=== PATIENT | female | born 1940 | race Caucasian/White ===

== ENCOUNTER 2020-08-08 15:16 | Emergency (ER) | payer MEDICARE ==
[~2020-08-08 15:16] MED LIST: MONT10TA21 PO
[2020-08-08] MEDS ORDERED: GUAIFENESIN SUGAR-FREE 100 MG/5 ML UDCUP ONE (15:48)
[2020-08-08] MEDS ORDERED: 0.9%NACL 1000ML 1,000 ML IV ONE (15:48)
[2020-08-08] MEDS ORDERED: ALBUTEROL 0.083% 2.5 MG/3 ML INH IH ONE (16:09)
[2020-08-08] MEDS ORDERED: HYDROXYZINE 25 MG TABLET ONE (16:13)
[2020-08-08] MEDS ORDERED: DEXAMETHASONE SOD PHOSPHATE 10MG/ML 1ML VIAL ONE (16:13)
[2020-08-08 16:24] LABS: BASOPHILS % (AUTO) 1.3 % (0.0-5.0); EOSINOPHILS % (AUTO) 18.5 % (0.0-8.0); HEMATOCRIT 42.4 % (36-48); LYMPHOCYTES % (AUTO) 18.3 % (21.0-51.0); MEAN CORPUSCULAR HEMOGLOBIN 30.9 pg (27.0-33.0); MEAN CORPUSCULAR HGB CONC 32.1 g/dL (32.0-36.0); MEAN CORPUSCULAR VOLUME 96.4 fL (79-99); MONOCYTES % (AUTO) 6.1 % (3.0-13.0); NEUTROPHILS % (AUTO) 55.7 % (40.0-77.0); PLATELET COUNT (AUTO) 176 K/uL (130-400); RED CELL DISTRIBUTION WIDTH 13.4 % (11.0-15.5); WHITE BLOOD COUNT (AUTO) 7.7 K/uL (4.8-10.8)
[2020-08-08 16:45] LABS: CREATININE 0.9 mg/dL (0.5-1.5); INR 0.99 (0.85-1.15); POTASSIUM 4.9 mmol/L (3.5-5.1); PROTHROMBIN TIME 10.8 SEC (9.6-11.6)
[2020-08-08 16:46] LABS: PARTIAL THROMBOPLASTIN TIME 29.3 SEC (26.3-35.5)
[2020-08-08 16:47] LABS: B-TYPE NATRIURETIC PEPTIDE 11 pg/mL (0-100)
[2020-08-08 16:50] LABS: ALBUMIN 3.7 g/dL (3.5-5.0); BILIRUBIN,TOTAL 0.4 mg/dL (0.2-1.0); TOTAL PROTEIN, SERUM 7.3 g/dL (6.0-8.3)
== END 2020-08-08 18:03 | disposition home or self-care (01) ==
LOC: EDH 15:16
DX: J40 Bronchitis, not specified as acute or chronic (principal); Z88.0 Allergy status to penicillin; Z88.6 Allergy status to analgesic agent; Z88.2 Allergy status to sulfonamides; Z88.1 Allergy status to other antibiotic agents; Z88.8 Allergy status to other drugs, medicaments and biological substances
CPT/HCPCS: 36415; 71045; 80053; 82550; 83605; 83880; 84484; 85025; 85610; 85730; 87040 ×2; 93005; 94640 ×2; 96365; 96366; 96375; 99285; J1100; J7030

== ENCOUNTER 2021-05-24 14:15 | Observation (INO) | payer OTHER ==
[~2021-05-24] VITALS: Ht 162.6 cm; Wt 62.2 kg
[2021-05-24] MEDS ORDERED: IPRATROPIUM/ALBUTEROL SULFATE 3 ML SOLUTION IH ONE (15:00)
[2021-05-24] MEDS ORDERED: 0.9%NACL 1000ML 1,000 ML IV ONE (15:00)
[2021-05-24] MEDS ORDERED: SOLU-MEDROL 125MG VIAL IVP ONE (15:00)
[2021-05-24 15:06] LABS: BASOPHILS % (AUTO) 0.5 % (0.0-5.0); EOSINOPHILS % (AUTO) 31.1 % (0.0-8.0); HEMATOCRIT 41.7 % (36-48); LYMPHOCYTES % (AUTO) 7.1 % (21.0-51.0); MEAN CORPUSCULAR HEMOGLOBIN 31.3 pg (27.0-33.0); MEAN CORPUSCULAR HGB CONC 32.4 g/dL (32.0-36.0); MEAN CORPUSCULAR VOLUME 96.5 fL (79-99); MONOCYTES % (AUTO) 5.5 % (3.0-13.0); NEUTROPHILS % (AUTO) 55.4 % (40.0-77.0); PLATELET COUNT (AUTO) 219 K/uL (130-400); RED BLOOD CELL COUNT(AUTO) 4.32 MIL/uL (4.00-5.50); RED CELL DISTRIBUTION WIDTH 13.9 % (11.0-15.5)
[2021-05-24] MEDS ORDERED: ALBUTEROL 0.083% 2.5 MG/3 ML INH IH ONE (15:11)
[2021-05-24 15:18] LABS: CREATININE 0.8 mg/dL (0.5-1.5); POTASSIUM 4.5 mmol/L (3.5-5.1)
[2021-05-24 15:23] LABS: ALBUMIN 3.5 g/dL (3.5-5.0); BILIRUBIN,TOTAL 0.8 mg/dL (0.2-1.0); TOTAL PROTEIN, SERUM 6.8 g/dL (6.0-8.3)
[2021-05-24 15:27] LABS: B-TYPE NATRIURETIC PEPTIDE 11 pg/mL (0-100)
[2021-05-24] MEDS ORDERED: LORAZEPAM 2 MG/ML 1 ML VIAL IVP ONE (15:30)
[2021-05-24 16:21] LABS: ABG BASE EXCESS -6.8 mmol/L (-2.0-3.0); ABG HCO3 17.7 mmol/L (21.0-28.0); ABG OXYGEN SATURATION 95.4 % (95.0-99.0); ABG PCO2 33 mmHg (32-45)
[2021-05-24] MEDS ORDERED: GUAIFENESIN-DM 200/20 MG 10 ML PO ONE (16:30)
[2021-05-24] MEDS ORDERED: LORAZEPAM 2 MG/ML 1 ML VIAL ONE (16:44)
[2021-05-24] MEDS ORDERED: AZITHROMYCIN 500MG VIAL IVPB SCH (17:30)
[2021-05-24] MEDS ORDERED: ONDANSETRON 4MG INJ IVP PRN (17:30)
[2021-05-24] MEDS ORDERED: ACETAMINOPHEN 325 MG TAB PO PRN (17:30)
[2021-05-24] MEDS ORDERED: ALBUTEROL 0.042% 1.25MG/3ML IH SCH (18:00)
[2021-05-24] MEDS ORDERED: PHARMACY COMMUNICATION MISC SCH ×2 (18:00→19:00)
[2021-05-24] MEDS ORDERED: SODIUM CHLORIDE 3% FOR INHALATION 4 ML/AMP VIAL.NEB IH ONE ×2 (18:39→22:15)
[2021-05-24] MEDS: IPRATROPIUM/ALBUTEROL SULFATE 3 ML SOLUTION IH SCH (19:32)
[2021-05-24] MEDS: BUDESONIDE 0.5 MG/2 ML INH IH SCH (19:32)
[2021-05-24] MEDS ORDERED: AZITHROMYCIN 500MG+NS 250ML 250 ML IV ONE (21:04)
[2021-05-24] MEDS: 0.9% NACL 250ML IVPB SCH (21:14)
[2021-05-24] MEDS: FAMOTIDINE 20MG VIAL IV SCH (21:14)
[2021-05-24] MEDS: MONTELUKAST SODIUM 10 MG TAB PO SCH (21:14)
[2021-05-24] MEDS: SOLU-MEDROL 40MG VIAL IVP SCH (21:14)
[2021-05-25] MEDS: IPRATROPIUM/ALBUTEROL SULFATE 3 ML SOLUTION IH SCH ×5 (00:31→18:43)
[2021-05-25] MEDS ORDERED: SODIUM CHLORIDE 3% FOR INHALATION 4 ML/AMP VIAL.NEB IH ONE (01:20)
[2021-05-25] MEDS: SOLU-MEDROL 40MG VIAL IVP SCH ×2 (05:25→12:39)
[2021-05-25] MEDS: GUAIFENESIN-DM 200/20 MG 10 ML PO PRN ×2 (05:41→17:02)
[2021-05-25] MEDS ORDERED: IPRATROPIUM/ALBUTEROL SULFATE 3 ML SOLUTION IH ONE (06:25)
[2021-05-25 07:09] LABS: HEMATOCRIT 37.5 % (36-48); MEAN CORPUSCULAR HEMOGLOBIN 30.9 pg (27.0-33.0); MEAN CORPUSCULAR HGB CONC 31.7 g/dL (32.0-36.0); MEAN CORPUSCULAR VOLUME 97.4 fL (79-99); RED BLOOD CELL COUNT(AUTO) 3.85 MIL/uL (4.00-5.50); RED CELL DISTRIBUTION WIDTH 14.2 % (11.0-15.5); WHITE BLOOD COUNT (AUTO) 6.2 K/uL (4.8-10.8)
[2021-05-25 07:17] LABS: CREATININE 0.8 mg/dL (0.5-1.5); POTASSIUM 4.3 mmol/L (3.5-5.1)
[2021-05-25] MEDS: BUDESONIDE 0.5 MG/2 ML INH IH SCH ×2 (07:27→18:57)
[2021-05-25] MEDS ORDERED: IPRATROPIUM/ALBUTEROL SULFATE 3 ML SOLUTION IH SCH (08:00)
[2021-05-25 08:56] VITALS: BP 138/70
[2021-05-25] MEDS: CETIRIZINE HCL 5 MG TABLET PO SCH (09:53)
[2021-05-25] MEDS: FAMOTIDINE 20MG VIAL IV SCH ×2 (09:53→21:32)
[2021-05-25 11:52] VITALS: BP 132/59
[2021-05-25 16:01] VITALS: BP 120/60
[2021-05-25 16:02] LABS: HEMOGLOBIN A1C 5.8 % (4.0-6.0)
[2021-05-25] MEDS ORDERED: INSULIN HUMULIN R 100 UNIT/ML 3ML SQ SCH (16:30)
[2021-05-25] MEDS: 0.9% NACL 250ML IVPB SCH (17:16)
[2021-05-25] MEDS: AZITHROMYCIN 500MG+NS 250ML IV SCH (17:16)
[2021-05-25 20:00] VITALS: BP 140/58
[2021-05-25] MEDS: MONTELUKAST SODIUM 10 MG TAB PO SCH (21:32)
[2021-05-26] MEDS ORDERED: SOLU-MEDROL 40MG VIAL IVP SCH
[2021-05-26 00:06] VITALS: BP 138/70
[2021-05-26] MEDS: IPRATROPIUM/ALBUTEROL SULFATE 3 ML SOLUTION IH SCH ×5 (00:06→23:48)
[2021-05-26] MEDS: GUAIFENESIN-DM 200/20 MG 10 ML PO PRN ×3 (00:12→22:13)
[2021-05-26 04:09] VITALS: BP 135/67
[2021-05-26 04:28] LABS: HEMATOCRIT 35.4 % (36-48); MEAN CORPUSCULAR HEMOGLOBIN 31.7 pg (27.0-33.0); MEAN CORPUSCULAR HGB CONC 31.9 g/dL (32.0-36.0); MEAN CORPUSCULAR VOLUME 99.2 fL (79-99); RED BLOOD CELL COUNT(AUTO) 3.57 MIL/uL (4.00-5.50); RED CELL DISTRIBUTION WIDTH 14.3 % (11.0-15.5); WHITE BLOOD COUNT (AUTO) 12.4 K/uL (4.8-10.8)
[2021-05-26 04:38] LABS: CREATININE 0.9 mg/dL (0.5-1.5)
[2021-05-26] MEDS: BUDESONIDE 0.5 MG/2 ML INH IH SCH ×2 (06:40→18:55)
[2021-05-26] MEDS: FAMOTIDINE 20MG VIAL IV SCH ×2 (08:30→20:39)
[2021-05-26] MEDS: CETIRIZINE HCL 5 MG TABLET PO SCH (08:30)
[2021-05-26 08:47] VITALS: BP 142/67
[2021-05-26] MEDS ORDERED: BENZONATATE 100 MG CAPSULE PO PRN (12:30)
[2021-05-26 12:36] VITALS: BP 170/60
[2021-05-26] MEDS ORDERED: DEXTROSE 50%-WATER 50 ML DISP.SYRIN IV PRN (13:00)
[2021-05-26] MEDS ORDERED: GLUCAGON 1MG KIT 1 MG ML IM PRN (13:00)
[2021-05-26] MEDS: SOLU-MEDROL 125MG VIAL IVP SCH (13:13)
[2021-05-26 15:22] LABS: BASOPHILS % (AUTO) 0.1 % (0.0-5.0); EOSINOPHILS % (AUTO) 0.1 % (0.0-8.0); HEMATOCRIT 35.2 % (36-48); LYMPHOCYTES % (AUTO) 6.1 % (21.0-51.0); MEAN CORPUSCULAR HEMOGLOBIN 31.7 pg (27.0-33.0); MEAN CORPUSCULAR HGB CONC 32.4 g/dL (32.0-36.0); MEAN CORPUSCULAR VOLUME 97.8 fL (79-99); NEUTROPHILS % (AUTO) 88.6 % (40.0-77.0); PLATELET COUNT (AUTO) 238 K/uL (130-400); RED CELL DISTRIBUTION WIDTH 14.3 % (11.0-15.5); WHITE BLOOD COUNT (AUTO) 14.5 K/uL (4.8-10.8)
[2021-05-26 16:30] VITALS: BP 141/68
[2021-05-26] MEDS: INSULIN HUMULIN R 100 UNIT/ML 3ML SQ SCH ×2 (16:30→20:50)
[2021-05-26] MEDS: 0.9% NACL 250ML IVPB SCH (18:22)
[2021-05-26] MEDS: AZITHROMYCIN 500MG+NS 250ML IV SCH (18:22)
[2021-05-26 20:00] VITALS: BP 141/67
[2021-05-26] MEDS: MONTELUKAST SODIUM 10 MG TAB PO SCH (20:39)
[2021-05-26] MEDS ORDERED: SENNOSIDES 8.6 MG TABLET PO PRN (22:00)
[2021-05-26 23:29] LABS: APPEARANCE,URINE Clear (CLEAR); BILIRUBIN,URINE Negative (NEGATIVE); COLOR,URINE Yellow (YELLOW); GLUCOSE, URINE (UA) Negative (NEGATIVE); KETONES,URINE Negative (NEGATIVE); LEUKOCYTE ESTERASE ,URINE Negative (NEGATIVE); NITRATE,URINE Negative (NEGATIVE); OCCULT BLOOD,URINE Negative (NEGATIVE); PH,URINE 5.5 (5.0-8.0); PROTEIN,URINE Negative (NEGATIVE); UROBILINOGEN,URINE 0.2 mg/dL (0.2-1.0)
[2021-05-27] VITALS: BP 136/65
[2021-05-27] MEDS: SOLU-MEDROL 125MG VIAL IVP SCH (01:19)
[2021-05-27 04:00] VITALS: BP 153/71
[2021-05-27 04:13] LABS: BASOPHILS % (AUTO) 0.1 % (0.0-5.0); HEMATOCRIT 34.6 % (36-48); MEAN CORPUSCULAR HGB CONC 31.2 g/dL (32.0-36.0); MEAN CORPUSCULAR VOLUME 102.7 fL (79-99); NEUTROPHILS % (AUTO) 86.4 % (40.0-77.0); PLATELET COUNT (AUTO) 221 K/uL (130-400); RED BLOOD CELL COUNT(AUTO) 3.37 MIL/uL (4.00-5.50); RED CELL DISTRIBUTION WIDTH 14.6 % (11.0-15.5); WHITE BLOOD COUNT (AUTO) 12.9 K/uL (4.8-10.8)
[2021-05-27 04:21] LABS: CREATININE 0.9 mg/dL (0.5-1.5)
[2021-05-27] MEDS: GUAIFENESIN-DM 200/20 MG 10 ML PO PRN (06:21)
[2021-05-27] MEDS ORDERED: CETI10CA5 PO (06:27)
[2021-05-27] MEDS ORDERED: IBUP-2077 PO (06:27)
[2021-05-27] MEDS: INSULIN HUMULIN R 100 UNIT/ML 3ML SQ SCH ×2 (06:37→11:30)
[2021-05-27] MEDS ORDERED: ALBU1.252 IH (06:42)
[2021-05-27] MEDS: IPRATROPIUM/ALBUTEROL SULFATE 3 ML SOLUTION IH SCH ×2 (07:36→11:13)
[2021-05-27] MEDS: BUDESONIDE 0.5 MG/2 ML INH IH SCH (07:36)
[2021-05-27 08:00] VITALS: BP 105/72
[2021-05-27] MEDS: CETIRIZINE HCL 5 MG TABLET PO SCH (09:50)
[2021-05-27] MEDS: FAMOTIDINE 20MG VIAL IV SCH (09:50)
[2021-05-27] MEDS ORDERED: MONT10TA21 PO (11:42)
[2021-05-27] MEDS ORDERED: PANT40TA54 PO (11:42)
[2021-05-27] MEDS ORDERED: BENZ-70 PO (11:42)
[2021-05-27] MEDS ORDERED: PRED20TA3 PO (11:42)
[2021-05-27] MEDS ORDERED: BUDE0.5A3 IH (11:42)
[2021-05-27 12:00] VITALS: BP 143/75
[2021-05-28] MEDS ORDERED: FLUTICASONE/VILANTEROL 1 EACH BLST.W.DEV IH SCH (09:00)
== END 2021-05-27 13:15 | disposition home or self-care (01) ==
LOC: EDH 14:15 → INTOOBSV 17:20 → EDHIP 17:20 → 4DH 05-25 08:25
PROVIDERS: ADMIT Internal Medicine; ATTEND Internal Medicine
DX: J96.01 Acute respiratory failure with hypoxia (principal); Z20.822 Contact with and (suspected) exposure to COVID-19; J45.901 Unspecified asthma with (acute) exacerbation; E11.65 Type 2 diabetes mellitus with hyperglycemia; D72.10 Eosinophilia, unspecified; Z90.710 Acquired absence of both cervix and uterus; R05.9 Cough, unspecified; Z90.49 Acquired absence of other specified parts of digestive tract; Z79.899 Other long term (current) drug therapy; Z98.890 Other specified postprocedural states
CPT/HCPCS: 36415 ×4; 36600; 71045; 71046; 71250; 80048 ×3; 80053; 81003; 82785; 82803; 82948 ×7; 83036; 83880; 84145; 84484; 85025 ×3; 85027 ×2; 86038; 86140; 86200; 86255 ×3; 86431; 86606 ×5; 86612; 86635; 86698 ×2; 87040 ×2; 87486; 87581; 87633; 87635; 87798; 87804 ×2; 93005; 94640 ×24; 94664; 94760 ×2; 96361; 96365; 96366 ×3; 96375 ×2; 96376 ×4; 99285; C9803; G0378 ×22; J0456 ×3; J2060; J2920 ×2; J2930 ×3; J3490 ×6; J7050; 86215; 86235

== ENCOUNTER 2023-05-16 12:45 | Emergency (ER) | payer OTHER ==
[~2023-05-16] VITALS: Ht 162.6 cm; Wt 67.1 kg
[~2023-05-16 12:45] MED LIST changes: +ALBU1.252 IH; +BENZ-226 PO; +BUDE0.5A3 IH; +CETI10CA5 PO; +IBUP-2077 PO; +MONT-46 PO; -MONT10TA21 PO; +PANT40TA54 PO; +PRED20TA3 PO
[2023-05-16] MEDS ORDERED: LINA72CA PO (13:48)
[2023-05-16] MEDS ORDERED: OMEP-420 PO (13:48)
[2023-05-16] MEDS ORDERED: PRED20TA3 PO ×2 (13:48→17:48)
[2023-05-16] MEDS ORDERED: BIOT10005 PO (13:48)
[2023-05-16 14:07] LABS: BASOPHILS # (AUTO) 0.05 K/uL (0.00-0.20); BASOPHILS % (AUTO) 0.7 % (0.0-5.0); EOSINOPHILS % (AUTO) 2.9 % (0.0-8.0); HEMATOCRIT 42.8 % (36-48); IMMATURE GRANULOCYTE ABSOLUTE 0.03 K/uL (0-1); LYMPHOCYTES # (AUTO) 1.3 K/uL (1.0-4.8); LYMPHOCYTES % (AUTO) 18.8 % (21.0-51.0); MEAN CORPUSCULAR HGB CONC 32.7 g/dL (32.0-36.0); MEAN CORPUSCULAR VOLUME 97.9 fL (79-99); MONOCYTES # (AUTO) 0.6 K/uL (0.1-1.0); MONOCYTES % (AUTO) 8.9 % (3.0-13.0); NEUTROPHILS # (AUTO) 4.7 K/uL (1.8-7.7); NEUTROPHILS % (AUTO) 68.3 % (40.0-77.0); PLATELET COUNT (AUTO) 180 K/uL (130-400); RED BLOOD CELL COUNT(AUTO) 4.37 MIL/uL (4.00-5.50); RED CELL DISTRIBUTION WIDTH 14.2 % (11.0-15.5); WHITE BLOOD COUNT (AUTO) 6.8 K/uL (4.8-10.8)
[2023-05-16 14:20] LABS: CREATININE 0.9 mg/dL (0.5-1.5); POTASSIUM 3.9 mmol/L (3.5-5.1)
[2023-05-16 14:23] LABS: SARS-CoV-2, RNA, NAAT NEGATIVE SARS CoV-2 (NEGATIVE)
[2023-05-16 14:25] LABS: ALBUMIN 3.4 g/dL (3.5-5.0); BILIRUBIN,TOTAL 0.4 mg/dL (0.2-1.0); TOTAL PROTEIN, SERUM 6.6 g/dL (6.0-8.3)
[2023-05-16 14:32] LABS: INFLUENZA TYPE A Negative For Type A (NEGATIVE); INFLUENZA TYPE B Negative For Type B (NEGATIVE)
[2023-05-16] MEDS ORDERED: SOLU-MEDROL 40MG VIAL IVP ONE (15:00)
[2023-05-16] MEDS ORDERED: IPRATROPIUM/ALBUTEROL SULFATE 3 ML SOLUTION IH ONE (15:00)
[2023-05-16 15:08] VITALS: PULSE 85; RESP 24
[2023-05-16] MEDS ORDERED: GUAI5LIQ13 PO (17:48)
[2023-05-16] MEDS ORDERED: FLUT1DIS3 IH (17:48)
[2023-05-16] MEDS ORDERED: ALBU18HF7 IH (17:48)
[2023-05-16 18:14] VITALS: BP 122/59; PULSE 85; RESP 18; O2SAT 98
== END 2023-05-16 18:18 | disposition home or self-care (01) ==
LOC: EDH 12:45
DX: J20.9 Acute bronchitis, unspecified (principal); K21.9 Gastro-esophageal reflux disease without esophagitis; Z79.52 Long term (current) use of systemic steroids; Z79.899 Other long term (current) drug therapy; Z86.16 Personal history of COVID-19; Z88.0 Allergy status to penicillin; Z88.1 Allergy status to other antibiotic agents; Z88.2 Allergy status to sulfonamides; Z88.5 Allergy status to narcotic agent; Z20.822 Contact with and (suspected) exposure to COVID-19
CPT/HCPCS: 99284; 96374; 71045; 87635; 80053; 85025; 87804 ×2; 36415; 93005; 94640; C9803; J2920

== ENCOUNTER 2024-11-30 17:53 | Emergency (ER) | payer OTHER ==
[~2024-11-30] VITALS: Ht 10.2 cm; Wt 68.0 kg
[~2024-11-30 17:53] MED LIST changes: +ALBU18HF7 IH; -BENZ-226 PO; +BIOT10005 PO; -BUDE0.5A3 IH; +FLUT1DIS3 IH; +GUAI5SYR10 PO; -IBUP-2077 PO; +LINA72CA PO; -MONT-46 PO; +OMEP-420 PO; -PANT40TA54 PO
--- NOTE | 2024-11-30 18:15 | ERN ---
ED Note History of Present Illness Stated Complaint: RIGHT FOOT INJURY Chief Complaint: Lower Extremity Pain/Injury Time Seen by MD: 18:05 Time Seen by Midlevel: 18:10 Dictation: Ms. Ramsey is a 84 year old female with history of reactive airway disease and GERD who presented to the Emergency Department this evening for evaluation of right lower extremity. She states that last evening she stumbled while trying to get into the bathtub. This morning when she went to get out of bed she had pain with weight bearing and swelling of her right foot/ankle. She states pain persists and now she is having pain to lower leg as well. There is no deformity noted. She denies additional injury. She denies recent illness, fever, chills, shortness of breath, cough, chest pain, palpitations, edema, abdominal pain, nausea, vomiting, hematemesis, constipation, diarrhea, melena, hematochezia, dysuria, headache, dizziness, or focal weakness/paresthesia Allergies: Coded Allergies: Penicillins (Unverified Allergy, Unknown, 04/23/16) cefdinir (Unverified Allergy, Unknown, 05/16/23) cephalexin (Unverified Allergy, Unknown, 05/16/23) ciprofloxacin (Unverified Allergy, Unknown, 04/23/16) codeine (Unverified Allergy, Unknown, 04/23/16) doxycycline (Unverified Allergy, Unknown, 05/16/23) erythromycin base (Unverified Allergy, Unknown, 04/23/16) phenobarbital (Unverified Allergy, Unknown, 04/23/16) sulfamethoxazole (Unverified Allergy, Unknown, 04/23/16) trimethoprim (Unverified Allergy, Unknown, 04/23/16) Home Meds Active Scripts Prednisone (Prednisone) 20 Mg Tablet, 1 TAB PO AD for 4 Days, #4 TAB 0 Refills TAKE 1 TAB BY MOUTH THREE TIMES PER DAY X3 DAYS, THEN TAKE 1 TAB BY MOUTH TWICE A DAY X2 DAYS, THEN TAKE 1 TAB BY MOUTH ONCE A DAY X1 DAY. Prov:JACKELIN MARTÍNEZ MD 05/16/23 Fluticasone/Salmeterol (Advair 250-50 Diskus) 250 Mcg-50 Mcg/Dose Blst.w.dev, 1 PUFF IH BID, #1 IN Prov:JACKELIN MARTÍNEZ MD 05/16/23 Guaifenesin/Dextromethorphan (Guaifenesin-Dm 100-10 mg/5 ml) 100 Mg-10 Mg/5 Ml Liquid, 5 ML PO Q4HPRN PRN for COUGH, #200 ML Prov:JACKELIN MARTÍNEZ MD 05/16/23 Albuterol Sulfate (Ventolin Hfa) 90 Mcg Hfa.aer.ad, 2 PUFF IH Q4HPRN for shortness of breath, #1 INHALER Prov:JACKELIN MARTÍNEZ MD 05/16/23 Reported Medications Biotin (Biotin) 10,000 Mcg Capsule, 55891 MCG PO DAILY, CAP 05/16/23 Linaclotide (Linzess) 72 Mcg Capsule, 72 MCG PO DAILY, CAP 05/16/23 Omeprazole (Omeprazole) 20 Mg Tab.rap.dr, 20 MG PO DAILY 05/16/23 Prednisone (Prednisone) 20 Mg Tablet, 20 MG PO DAILY, TAB 05/16/23 Albuterol Sulfate (Albuterol Sulfate) 1.25 Mg/3 Ml Vial.neb, 1.25 MG IH Q4HPRN PRN for SHORTNESS OF BREATH/WHEEZING, INH 05/27/21 Cetirizine HCl (Zyrtec) 10 Mg Capsule, 10 MG PO DAILY, CAP 05/27/21 Past Medical History Past Medical History: GERD, Other Additional Past Medical Hx: COVID 12/08, reactive airway disease Surgical History: Other Surgical History Other: ONE KIDNEY PSYCH History: no pertinent psych hx Social History: Negative History: Not Applicable RN Note Reviewed/Agreed w/PFSH: Yes Review of System Dictation REVIEW OF SYSTEMS: CONSTITUTIONAL: Patient denies fevers, chills, sweats and weight changes. EYES: Patient denies any visual symptoms. EARS, NOSE, AND THROAT: No difficulties with hearing. No symptoms of rhinitis or sore throat. CARDIOVASCULAR: Patient denies chest pains, palpitations, orthopnea and paroxysmal nocturnal dyspnea. RESPIRATORY: No dyspnea on exertion, no wheezing or cough. GI: No nausea, vomiting, diarrhea, constipation, abdominal pain, hematochezia or melena. : No urinary hesitancy or dribbling. No nocturia or urinary frequency. No abnormal urethral discharge. MUSCULOSKELETAL: Reports pain to right ankle and right lower leg. Reports swe lling to left foot and ankle. NEUROLOGIC: No chronic headaches, no seizures. Patient denies numbness, tingling or weakness. PSYCHIATRIC: Patient denies problems with mood disturbance. No problems with anxiety. ENDOCRINE: No excessive urination or excessive thirst. DERMATOLOGIC: Patient denies any rashes or skin changes. Initial Vital Sign VS Vital Signs Date Time Temp Pulse Resp B/P (MAP) Pulse Ox O2 Delivery O2 Flow Rate FiO2 11/30/24 18:10 100.0 95 24 99 Room Air 0 11/30/24 19:44 131/64 21 Physical Exam Dictation Vital signs: Reviewed. Afebrile. Constitutional: No acute distress. Non-toxic appearing. Head/Face: Normocephalic, atraumatic. Eyes: Periorbital areas with no swelling, redness, or edema. Lids and lashes are normal. Conjunctival injection is absent. Sclera anicteric. Pupils equal, round, reactive to light. ENT: Pinnas intact and no signs of trauma or erythema. Ear canals clear and no discharge. TMs no erythema. No nasal discharge or bleeding noted. Oropharynx with no exudate, redness, swelling, masses, exudates, or evidence of obstruction. Uvula midline. Mucous membranes moist. Neck: Trachea midline, no masses palpated, and no cervical lymphadenopathy. No swelling. Supple, full range of motion. Chest/Axilla: No tenderness, no crepitus, no paradoxical movement, no retractions. Cardiovascular: Regular rate, regular rhythm, no murmur, no gallops. Symmetric pulses. Normotensive. Respiratory: Respirations even and unlabored. Lung sounds clear; no wheezes, rales or rhonchi. Room air spo2 98% Gastrointestinal: Inspection is normal. No distention is appreciated. Bowel sounds are normal. No mass or organomegaly . There is no tenderness. No rebound. No rigidity. No voluntary or involuntary guarding. No Singletary's sign. Neurological: Normal speech, gross motor function intact, gross sensory function intact. No focal weakness/Paresthesia. Musculoskeletal/Extremities: Decreased ROM right ankle secondary to pain/ swelling. Symmetric pulses. Pain upon palpation of ankle and lower lower leg on right. No obvious deformity. No crepitus. No open wounds. Integumentary: Intact. Skin is normal color, warm and dry. Cap refill less than 3 seconds. Results (Laboratory/Radiology) X-RAY Comment: PATIENT: ABDELRAHMAN RAMSEY MR#: [id number] : 1940 SEX: F AGE: 84 LOCATION: [facility] ORDER 183 STATUS: REG ER REPORT#: [id number] SERVICE 182 REASON: pain/swelling ORDERING PHYSICIAN: MALLIKA GAUTHIER NP PROCEDURE: TIBFIB RT - TIBIA/FIBULA 2VWS RT TIBIA/FIBULA 2VWS RT HISTORY: Pain and swelling COMPARISON: None PATIENT: ABDELRAHMAN RAMSEY MR#: [id number] : 1940 SEX: F AGE: 84 LOCATION: ED ORDER 16 STATUS: REG ER REPORT#: [id number] SERVICE 15 REASON: fall ORDERING PHYSICIAN: MALLIKA GAUTHIER NP PROCEDURE: AVV6EOF - ANKLE COMP 3VWS RT ANKLE COMP 3VWS RT HISTORY: Status post fall COMPARISON: None TECHNIQUE: Images of the right ankle were obtained. FINDINGS: There is a calcaneal spur. There is no acute displaced fracture or dislocation. There is soft tissue swelling. Degenerative changes are seen. IMPRESSION: 1. Findings as described above. DICTATED BY: SANDRO RILEY MD DATE: 11/30/241950 ELECTRONICALLY SIGNED BY: SANDRO RILEY MD DATE: 11/30/241953 TECHNIQUE: 2 images of the right tibia and fibula were obtained. FINDINGS: There is no acute displaced fracture or dislocation. Degenerative changes are seen. IMPRESSION: 1. Findings as described above. DICTATED BY: SANDRO RILEY MD DATE: 11/30/241946 ELECTRONICALLY SIGNED BY: SANDRO RILEY MD DATE: 11/30/241952 ED Course ED Course Orders Procedure Category Date Status Time Apply Ice Pack To: CPOE 11/30/24 Transmitted (Er) 18:16 Ankle Comp 3vws Rt RAD 11/30/24 Resulted 18:16 Ketorolac 60mg/2ml PHA 11/30/24 In Process (Toradol 60mg/2ml) 18:30 Tibia/Fibula 2vws Rt RAD 11/30/24 Resulted 18:29 Current Medications Medications (Trade) Dose Ordered Sig/Obie Route PRN Reason Start Time Stop Time Status Last Admin Dose Admin Ketorolac Tromethamine (toRADol 60MG/ 2ML) 30 mg ONCE IM 11/30/24 18:30 11/30/24 22:30 11/30/24 18:43 Vital Signs Date Time Temp Pulse Resp B/P (MAP) Pulse Ox O2 Delivery O2 Flow Rate FiO2 11/30/24 19:44 98.2 94 17 131/64 98 Room Air* 0 21 11/30/24 18:10 100.0 95 24 99 Room Air 0 Uneventful ED course. Vital signs are stable; afebrile and normotensive with room air SpO2 98-99%. X-ray of the right ankle and right tib-fib negative for fracture or dislocation/acute injury. Godfrey wrap was applied as well as ice pack. She continues to have good color, warmth, movement, and sensation to the right toes. Capillary refill is brisk. Pedal pulses are strong and palpable. Findings were discussed with patient and her family and all questions were answered. Medical Decision Making MDM MDM: Differential diagnosis: ankle fracture, ankle sprain/strain, Tib/fib fracture Rationale: Tests considered and ordered secondary to shared decision making in clude: X-ray Previous outside records reviewed: Old ER visits. Risk of complication and/or morbidity or mortality of patient management: None Medications-Per medication reconciliation Need for hospitalization: Patient does not meet criteria for hospitalization. Need for emergency major/minor surgery: No There are no social concerns with this patient. Prescription drug management: Ibuprofen/Tylenol Prescriptions will include symptomatic care Patient's prior external medical records from other ER visits were reviewed by me as indicated. Prior testing and results from previous visits were reviewed. Prior tests were taken into account with medical decision making and resource utilization, independent historian/historians were used to obtain complete medical history. I independently interpreted the test that were performed, results were reviewed by me and considered findings on radiology if ordered. Medical management and examination interpretation discussions were had by me with other qualified healthcare professionals as indicated for the patient's care. DX & DISP Disposition: Discharge Departure Impression: Primary Impression: Right ankle sprain Condition: Stable Scripts Ibuprofen (Ibuprofen) 600 Mg Tablet 400 MG PO q8 hour PRN PRN for PAIN, #12 TAB 0 Refills Prov: MALLIKA GAUTHIER NP 11/30/24 Additional Instructions: You have been diagnosed with an ankle sprain which means the ligament spotting or ankle have been stretched or partially torn. This injury typically heals wi th time, rest, and supportive care. Rest: Limit walking or standing. Apply ice for 15-20 minutes every 2-3 hours for the 1st 48-72 hours use Godfrey wrap to reduce swelling (not too tight). Keep the ankle elevated above the heart as much as possible to reduce swelling. Take acetaminophen or ibuprofen as needed for pain or inflammation. Avoid weight-bearing until the pain improves. Gradually return to weight-bearing as tolerated. Gentle ankle range of motion exercise may began after a few days. Avoid sports or vigorous activity until strength and mobility have returned. Follow up with your PCP early next week. Return to the ER if you have increased pain, swelling or inability to move foot. Numbness, tingling, or cool toes. Referrals: TOMMY URBAN MD (PCP) MALLIKA GAUTHIER NP Nov 30, 2024 18:15
[2024-11-30] MEDS: ketOROlac 60 MG VIAL (30MG/ML) IM SCH (18:43)
--- NOTE | 2024-11-30 19:30 | NUR ---
PT CARE ASSUMED AT THIS TIME
--- NOTE | 2024-11-30 19:44 | NUR ---
ICE PACK GIVEN TO PT AT THIS TIME
--- NOTE | 2024-11-30 19:53 | HMCIMG ---
TIBIA/FIBULA 2VWS RT HISTORY: Pain and swelling COMPARISON: None TECHNIQUE: 2 images of the right tibia and fibula were obtained. FINDINGS: There is no acute displaced fracture or dislocation. Degenerative changes are seen. IMPRESSION: 1. Findings as described above.
--- NOTE | 2024-11-30 19:54 | HMCIMG ---
ANKLE COMP 3VWS RT HISTORY: Status post fall COMPARISON: None TECHNIQUE: Images of the right ankle were obtained. FINDINGS: There is a calcaneal spur. There is no acute displaced fracture or dislocation. There is soft tissue swelling. Degenerative changes are seen. IMPRESSION: 1. Findings as described above.
[2024-11-30] MEDS ORDERED: IBUP-2070 PO (20:25)
--- NOTE | 2024-11-30 20:41 | NUR ---
CARMEN WRAP PLACED AND CRUTCHES GIVEN AT THIS TIME
[2024-11-30 20:44] VITALS: BP 140/62; PULSE 90; RESP 16; TEMP 98.2; O2SAT 99
== END 2024-11-30 20:48 | disposition home or self-care (01) ==
LOC: EDH 17:53
DX: S93.491A Sprain of other ligament of right ankle, initial encounter (principal); J45.909 Unspecified asthma, uncomplicated; K21.9 Gastro-esophageal reflux disease without esophagitis; Z79.51 Long term (current) use of inhaled steroids; Z79.52 Long term (current) use of systemic steroids; Z79.899 Other long term (current) drug therapy; Z88.0 Allergy status to penicillin; Z88.1 Allergy status to other antibiotic agents; Z88.2 Allergy status to sulfonamides; Z88.5 Allergy status to narcotic agent; Z98.890 Other specified postprocedural states; W18.39XA Other fall on same level, initial encounter; Y93.89 Activity, other specified; Y92.89 Other specified places as the place of occurrence of the external cause; Y99.8 Other external cause status
CPT/HCPCS: 99283; 73610; 73590; 96372; J1885

== ENCOUNTER 2024-12-09 14:09 | Emergency (ER) | payer OTHER ==
[~2024-12-09] VITALS: Ht 162.6 cm; Wt 67.6 kg
[~2024-12-09 14:09] MED LIST changes: +IBUP-2070 PO
[2024-12-09 15:03] LABS: BASOPHILS # (AUTO) 0.03 K/uL (0.00-0.20); BASOPHILS % (AUTO) 0.3 % (0.0-5.0); EOSINOPHILS # (AUTO) 0.11 K/uL (0.00-0.70); EOSINOPHILS % (AUTO) 1.3 % (0.0-8.0); IMMATURE GRANULOCYTE ABSOLUTE 0.03 K/uL (0-1); LYMPHOCYTES # (AUTO) 1.7 K/uL (1.0-4.8); LYMPHOCYTES % (AUTO) 19.1 % (21.0-51.0); MEAN CORPUSCULAR HEMOGLOBIN 31.3 pg (27.0-33.0); MEAN CORPUSCULAR HGB CONC 32.5 g/dL (32.0-36.0); MEAN CORPUSCULAR VOLUME 96.4 fL (79-99); MONOCYTES # (AUTO) 0.6 K/uL (0.1-1.0); MONOCYTES % (AUTO) 7.1 % (3.0-13.0); NEUTROPHILS # (AUTO) 6.3 K/uL (1.8-7.7); NEUTROPHILS % (AUTO) 71.9 % (40.0-77.0); PLATELET COUNT (AUTO) 262 K/uL (130-400); RED BLOOD CELL COUNT(AUTO) 4.15 MIL/uL (4.00-5.50); RED CELL DISTRIBUTION WIDTH 13.1 % (11.0-15.5); WHITE BLOOD COUNT (AUTO) 8.8 K/uL (4.8-10.8)
[2024-12-09 15:12] LABS: POTASSIUM 3.7 mmol/L (3.5-5.1)
[2024-12-09 15:16] LABS: ALBUMIN 3.2 g/dL (3.5-5.0); BILIRUBIN,TOTAL 0.2 mg/dL (0.2-1.0); TOTAL PROTEIN, SERUM 6.8 g/dL (6.0-8.3)
[2024-12-09] MEDS ORDERED: IOHEXOL-350 75 ML VIAL IV ONE (16:03)
--- NOTE | 2024-12-09 17:18 | HMCIMG ---
CT ABDOMEN WITHOUT CONTRAST. CT PELVIS WITHOUT CONTRAST. INDICATION: Lower abdominal pain and constipation TECHNIQUE: Routine transaxial imaging using 5 mm slice thickness through the abdomen and pelvis without the administration of IV contrast. Thin slice reconstructions are also provided. Coronal and sagittal reformatted images acquired for interpretation. CT was performed with one or more of the following dose reduction techniques: Automated exposure control, adjustment of the mA and/or kV according to patient size, or use of iterative reconstruction technique. COMPARISON: None FINDINGS: ON NONCONTRAST IMAGING: ABDOMEN: Heart size is normal. Visible lung bases are clear. No abnormal left renal calcifications, hydronephrosis, perinephric inflammation, or proximal hydroureter detected. Absent right kidney. The liver is normal in size and smooth in contour without biliary duct dilation. The spleen is normal in size and attenuation. The gallbladder is absent. The pancreas appears normal without pancreatic duct dilation. The adrenal glands appear normal. No significant abdominal, retrocrural or retroperitoneal adenopathy noted. No evidence for intra-abdominal free air or organized fluid collection. Mild calcific plaque is noted along the abdominal aortic and iliac vessel rivera without aneurysmal dilation. Very small fat-containing nonobstructing infraumbilical hernia. PELVIS: No abnormal calcifications within the urinary bladder or distal ureters. No evidence for free air or organized pelvic fluid collection. No significant pelvic adenopathy detected. 5.5 cm aggregate of diverticulum arising superiorly off the proximal duodenal sweep. Several diverticula along the distal colon and mild pericolonic inflammatory fat stranding along the proximal sigmoid colon without surrounding free air or organized fluid collection. Terminal ileum appears unremarkable. The appendix appears normal. Uterus is absent. Mild thoracolumbar spondylosis includes shallow lumbar dextroscoliosis. IMPRESSION: 1. Acute sigmoid diverticula is without perforation or abscess. 2. Absent right kidney. 3. Very small fat-containing nonobstructing infraumbilical hernia. 4. Additional minor findings, postsurgical changes, and pertinent negatives as reported.
[2024-12-09 17:30] VITALS: BP 154/75; PULSE 74; RESP 18; TEMP 98.4; O2SAT 99
[2024-12-09 17:52] LABS: APPEARANCE,URINE CLEAR (CLEAR); BILIRUBIN,URINE NEGATIVE (NEGATIVE); GLUCOSE, URINE (UA) NEGATIVE (NEGATIVE); KETONES,URINE NEGATIVE (NEGATIVE); LEUKOCYTE ESTERASE ,URINE 25 Leu/uL (NEGATIVE); NITRATE,URINE NEGATIVE (NEGATIVE); OCCULT BLOOD,URINE NEGATIVE (NEGATIVE); PH,URINE 6.5 (5.0-8.0); PROTEIN,URINE NEGATIVE (NEGATIVE); UROBILINOGEN,URINE 0.2 mg/dL (0.2-1.0)
[2024-12-09 17:54] LABS: ADD UA MICROSCOPIC YES; COLOR,URINE STRAW (YELLOW)
[2024-12-09 17:55] LABS: BACTERIA,URINE RARE /HPF (None Seen); RBC,URINE 0-1 /HPF (0-1); SQUAMOUS EPITHELIAL CELL,UR RARE /HPF (0-2)
[2024-12-09] MEDS ORDERED: METR-361 PO (18:16)
[2024-12-09] MEDS: METRONIDAZOLE 250 MG PO ONE (18:16)
--- NOTE | 2024-12-09 18:17 | ERN ---
ED Note History of Present Illness Stated Complaint: SEVERE CONSTIPATION Chief Complaint: Constipation Time Seen by MD: 14:30 Time Seen by Midlevel: 14:31 Dictation: 84-year-old female presents to the emergency department for evaluation due to reported having a history of constipation that today she feels it is getting worse. However, today she got concerned over having some mild discomfort to the left lower quadrant. There is no report of any fever, chills, nausea or vomiting associated with this. Patient states that her last bowel movement was a small pebble 4 days ago. At this time, her level of discomfort to the left lower quadrant is rated as a 2/10. Upon initial evaluation, the patient presents in no acute distress. 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 Prov:JACKELIN MARTÍNEZ MD 05/16/23 Fluticasone/Salmeterol (Advair 250-50 Diskus) 250 Mcg-50 Mcg/Dose Blst.w.dev, 1 PUFF IH BID, #1 IN Prov:JACKELIN MARTÍNEZ MD 05/16/23 Guaifenesin/Dextromethorphan (Guaifenesin-Dm 100-10 mg/5 ml) 100 Mg-10 Mg/5 Ml Liquid, 5 ML PO Q4HPRN PRN for COUGH, #200 ML Prov:JACKELIN MARTÍNEZ MD 05/16/23 Albuterol Sulfate (Ventolin Hfa) 90 Mcg Hfa.aer.ad, 2 PUFF IH Q4HPRN for ann marie rtness of breath, #1 INHALER Prov:JACKELIN MARTÍNEZ MD 05/16/23 Reported Medications Biotin (Biotin) 10,000 Mcg Capsule, 23121 MCG PO DAILY, CAP 05/16/23 Linaclotide (Linzess) 72 Mcg Capsule, 72 MCG PO DAILY, CAP 05/16/23 Omeprazole (Omeprazole) 20 Mg Tab.rap.dr, 20 MG PO DAILY 05/16/23 Prednisone (Prednisone) 20 Mg Tablet, 20 MG PO DAILY, TAB 05/16/23 Albuterol Sulfate (Albuterol Sulfate) 1.25 Mg/3 Ml Vial.neb, 1.25 MG IH Q4HPRN PRN for SHORTNESS OF BREATH/WHEEZING, INH 05/27/21 Cetirizine HCl (Zyrtec) 10 Mg Capsule, 10 MG PO DAILY, CAP 05/27/21 Past Medical History Past Medical History: COPD Additional Past Medical Hx: COVID 12/08, reactive airway disease Surgical History: Hysterectomy, Tonsillectomy, Cholecystectomy, Other Surgical History Other: HERNIA, NECK, SINUS SX Social History: Negative History: Not Applicable RN Note Reviewed/Agreed w/PFSH: Yes Review of System Dictation Abdomen/GI: Abdominal pain left lower quadrant, constipation Initial Vital Sign VS Vital Signs Date Time Temp Pulse Resp B/P (MAP) Pulse Ox O2 Delivery O2 Flow Rate FiO2 12/09/24 14:11 99.0 102 18 162/84 97 0 12/09/24 14:50 Room Air* 21 Physical Exam Dictation General: awake, alert, NAD Head/Face: Normocephalic, atraumatic Eyes: PERRL, EOMI ENT: Oral mucosa moist Neck: Trachea midline, supple Cardiovascular: RRR, no edema Respiratory: Symmetrical, non-labored Abdomen: Soft, non-distended, mild tenderness to left lower quadrant but no guarding. Skin: Warm, dry, good turgor, no rash MS/Extremity: Pulses equal, no cyanosis, neurovascular intact, FROM Neuro: COAx4, GCS 15, steady gait, Psych: Normal behavior, mood, and affect normal Results (Laboratory/Radiology) Laboratory/Radiology Laboratory Tests Test 12/09/24 14:53 12/09/24 17:40 White Blood Count 8.8 K/uL (4.8-10.8) Red Blood Count 4.15 MIL/uL (4.00-5.50) Hemoglobin 13.0 g/dL (12.0-16.0) Hematocrit 40.0 % (36-48) Mean Corpuscular Volume 96.4 fL (79-99) Mean Corpuscular Hemoglobin 31.3 pg (27.0-33.0) Mean Corpuscular Hemoglobin Concent 32.5 g/dL (32.0-36.0) Red Cell Distribution Width 13.1 % (11.0-15.5) Platelet Count 262 K/uL (130-400) Mean Platelet Volume 10.4 fL (7.5-10.5) Immature Granulocyte % (Auto) 0.3 % (0-1) Neutrophils (%) (Auto) 71.9 % (40.0-77.0) Lymphocytes (%) (Auto) 19.1 % (21.0-51.0) L Monocytes (%) (Auto) 7.1 % (3.0-13.0) Eosinophils (%) (Auto) 1.3 % (0.0-8.0) Basophils (%) (Auto) 0.3 % (0.0-5.0) Neutrophils # (Auto) 6.3 K/uL (1.8-7.7) Lymphocytes # (Auto) 1.7 K/uL (1.0-4.8) Monocytes # (Auto) 0.6 K/uL (0.1-1.0) Eosinophils # (Auto) 0.11 K/uL (0.00-0.70) Basophils # (Auto) 0.03 K/uL (0.00-0.20) Absolute Immature Granulocyte (auto 0.03 K/uL (0-1) Nucleated Red Blood Cells 0.0 % (0.0-0.19) Sodium Level 139 mmol/L (136-145) Potassium Level 3.7 mmol/L (3.5-5.1) Chloride Level 102 mmol/L (101-111) Carbon Dioxide Level 29 mmol/L (21-32) Blood Urea Nitrogen 14 mg/dL (7-18) Creatinine 1.0 mg/dL (0.5-1.0) Glomerular Filtration Rate Calc 56 mL/min (>90) Random Glucose 138 mg/dL (70-105) H Total Calcium 8.8 mg/dL (8.5-10.1) Total Bilirubin 0.2 mg/dL (0.2-1.0) Aspartate Amino Transf (AST/SGOT) 20 U/L (10-37) Alanine Aminotransferase (ALT/SGPT) 28 U/L (12-78) Alkaline Phosphatase 85 U/L (50-136) Total Protein 6.8 g/dL (6.0-8.3) Albumin 3.2 g/dL (3.5-5.0) L Lipase 31 U/L (16-77) Urine Color STRAW (YELLOW) Urine Appearance CLEAR (CLEAR) Urine pH 6.5 (5.0-8.0) Urine Specific [place] 1.004 (1.001-1.031) Urine Protein NEGATIVE mg/dL (NEGATIVE) Urine Glucose (UA) NEGATIVE mg/dL (NEGATIVE) Urine Ketones NEGATIVE mg/dL (NEGATIVE) Urine Occult Blood NEGATIVE (NEGATIVE) Urine Nitrate NEGATIVE (NEGATIVE) Urine Bilirubin NEGATIVE mg/dL (NEGATIVE) Urine Urobilinogen 0.2 mg/dL (0.2-1.0) Urine Leukocyte Esterase 25 Osmany/uL (NEGATIVE) H Urine RBC 0-1 /HPF (0-1) Urine WBC 2-5 /HPF (0-1) H Urine Squamous Epithelial Cells RARE /HPF (0-2) Urine Bacteria RARE /HPF (None Seen) Labs Reviewed?: Yes CT Scan Comment: CT abdomen/pelvis without contrast revealing an acute sigmoid diverticulitis without evidence of perforation as interpreted by the radiologist. ED Course ED Course Orders Procedure Category Date Status Time Cbc With Differential LAB 12/09/24 Complete 14:39 Comprehensive LAB 12/09/24 Complete Metabolic Panel 14:39 Urinalysis Profile LAB 12/09/24 Complete 14:39 Lipase LAB 12/09/24 Complete 14:39 Iohexol (Omnipaque) PHA 12/09/24 Complete 16:03 Ct Abdomen/Pelvis W/O CT 12/09/24 Resulted Contrast 16:13 Metronidazole (Flagyl) PHA 12/09/24 Complete 18:00 Current Medications Medications (Trade) Dose Ordered Sig/Obie Route PRN Reason Start Time Stop Time Status Last Admin Dose Admin Iohexol (Omnipaque) 75 ml STK-MED ONCE IV 12/09/24 16:03 12/09/24 16:04 DC Metronidazole (flaGYL) 250 mg ONCE ONCE PO 12/09/24 18:00 12/09/24 18:10 DC Vital Signs Date Time Temp Pulse Resp B/P (MAP) Pulse Ox O2 Delivery O2 Flow Rate FiO2 12/09/24 17:30 98.4 74 18 154/75 99 Room Air* 0 21 12/09/24 16:00 98.4 76 18 136/57 98 Room Air* 0 12/09/24 14:50 98.6 83 18 149/79 96 Room Air* 0 12/09/24 14:11 99.0 102 18 162/84 97 0 Medical Decision Making MDM MDM: Differential diagnosis: Acute abdominal pain, acute diverticulitis, small-bowel obstruction, constipation. Rationale: Tests considered and ordered secondary to shared decision making include: Previous outside records reviewed: Old ER visits. Risk of complication and/or morbidity or mortality of patient management: None Medications-Per medication reconciliation Need for hospitalization: Patient does not meet criteria for hospitalization. Need for emergency major/minor surgery: No There are no social concerns with this patient. Prescription drug management Prescriptions will include symptomatic care Patient's prior external medical records from other ER visits were reviewed by me as indicated. Prior testing and results from previous visits were reviewed. Prior tests were taken into account with medical decision making and resource utilization, independent historian/historians were used to obtain complete medic al history. I independently interpreted the test that were performed, results were reviewed by me and considered findings on radiology if ordered. Medical management and examination interpretation discussions were had by me with other qualified healthcare professionals as indicated for the patient's care. 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
== END 2024-12-09 18:28 | disposition home or self-care (01) ==
LOC: EDH 14:09
DX: K57.32 Diverticulitis of large intestine without perforation or abscess without bleeding (principal); J44.9 Chronic obstructive pulmonary disease, unspecified; Z79.51 Long term (current) use of inhaled steroids; Z79.52 Long term (current) use of systemic steroids; Z79.899 Other long term (current) drug therapy; Z86.16 Personal history of COVID-19; Z88.0 Allergy status to penicillin; Z88.1 Allergy status to other antibiotic agents; Z88.2 Allergy status to sulfonamides; Z88.5 Allergy status to narcotic agent; Z90.49 Acquired absence of other specified parts of digestive tract; Z90.710 Acquired absence of both cervix and uterus; Z98.890 Other specified postprocedural states
CPT/HCPCS: 36415; 74176; 80053; 81001; 83690; 85025; 99284; Q9967